=== PATIENT | male | born 1985 | race Caucasian/White ===

== ENCOUNTER 2023-01-28 19:30 | Emergency (ER) | payer BC ==
[2023-01-28] MEDS: Lidocaine 1% with EPINEPHrine 1:100,000 50 ML MDV INFILT ONE (19:32)
== END 2023-01-28 21:02 | disposition home or self-care (01) ==
LOC: LB.ED 19:30
DX: T14.8XXA Other injury of unspecified body region, initial encounter (principal); W22.8XXA Striking against or struck by other objects, initial encounter
CPT/HCPCS: 99282

== ENCOUNTER 2024-06-22 11:19 | Emergency (ER) | payer SELFPAY ==
[2024-06-22] MEDS: Lidocaine 1% with EPINEPHrine 1:100,000 50 ML MDV INFILT ONE (12:17)
[2024-06-22] MEDS: Lidocaine 1% with EPINEPHrine 1:100,000 20 ML MDV INJECT ONE (12:17)
== END 2024-06-22 12:28 | disposition home or self-care (01) ==
LOC: LB.ED 11:19
DX: S01.01XA Laceration without foreign body of scalp, initial encounter (principal); W22.8XXA Striking against or struck by other objects, initial encounter
CPT/HCPCS: 12002; 99282